=== PATIENT | female | born 1955 | race Caucasian/White ===

== ENCOUNTER → 2019-10-08 13:18 | Outpatient (CLI) | payer MEDICARE, SELFPAY ==
--- NOTE | ~2019-10-08 | US_ITS ---
EXAMINATION: US axilla LT HISTORY: Palpable lump of the left axilla TECHNIQUE: Targeted ultrasound is performed in the left axilla in the area of clinical concern. FINDINGS: There is no evidence of focal abnormal cystic or solid mass in the vicinity of the palpable abnormality of concern. IMPRESSION: No specific sonographic correlate is identified for the reported palpable abnormality of concern in t he left axilla. Further evaluation at this time should be based on clinical assessment. Continued fol low-up physical examination is recommended. BI-RADS Category 1: Negative Reviewed, dictated and finalized at location A. IDER SERVICE REPRESENTATIVE IMPRESSION: No specific sonographic correlate is identified for the reported palpable abnor mality of concern in the left axilla. Further evaluation at this time should be based on clinical assessment. Continued follow-up physical examination is blair mmended. BI-RADS Category 1: Negative
== END ==
PROVIDERS: PCP Internal Medicine; Visit Provider Nurse Practitioner
DX: M79.622 Pain in left upper arm (principal)
CPT/HCPCS: 76882

== ENCOUNTER → 2019-11-02 11:17 | Outpatient (CLI) | payer MEDICARE, SELFPAY ==
--- NOTE | ~2019-11-02 | XR_ITS ---
EXAMINATION: XR shoulder LT min 2V DATE: 11/02/2019 11:32 INDICATION: Left shoulder pain. TECHNIQUE: 4 views of left shoulder were obtained. COMPARISON: None. FINDINGS: Bone alignment is normal. No fracture. There is mild osteoarthritis of glenohumeral joint a nd acromioclavicular joint. IMPRESSION: 1. Mild polyarticular osteoarthritis. Reviewed, dictated and finalized at location A. BER
== END ==
PROVIDERS: Visit Provider Nurse Practitioner Adult Health
DX: M19.012 Primary osteoarthritis, left shoulder (principal)
CPT/HCPCS: 73030

== ENCOUNTER 2020-01-27 18:34 | Outpatient (CLI) | payer MEDICARE, SELFPAY ==
--- NOTE | ~2020-01-27 | MR_ITS ---
EXAMINATION: MR knee RT wo con DATE: 01/27/2020 19:18 INDICATION: Primary osteoarthritis of the right knee TECHNIQUE: Magnetic resonance imaging (MRI) of the right knee was performed without intravenous contr ast. Sequences included coronal PD-weighted FSE, coronal PD-weighted FS FSE, sagittal T2-weighted FS E, sagittal PD-weighted FS FSE and axial PD weighted fat saturated FSE. COMPARISON: None. FINDINGS: Medial compartment: Complex tear of the body and posterior horn of the medial meniscus. The posterior horn appears small with suggestion of a laterally displaced meniscal flap positioned near the posterior root. There is m ild partial-thickness cartilage loss throughout the weightbearing medial femoral condyle and along th e central, medial and posterior aspects of the medial tibial plateau with only minimal scattered bria dral surface irregularity. Lateral compartment: Lateral meniscus is normal. Region of partial-thickness chondral fissuring involving up to 50% the ca rtilage thickness at the central aspect of the lateral tibial plateau. There is deep cartilage loss w ith underlying subarticular edema along the articular surface of the lateral intercondylar eminence. Cartilage along the weightbearing lateral femoral condyle appears relatively preserved. Patellofemoral compartment: Small region of chondral ulceration and deep fissuring involving greater than 50% the cartilage thick ness along the inferior margin of the medial trochlea. Partial thickness cartilage loss with chondral surface irregularity at the medial and lateral patellar facets. Partial-thickness cartilage loss wit h relatively smooth chondral surface at the lateral trochlea. Ligaments and tendons: Tear of the proximal anterior cruciate ligament which appears attenuated with increased intrasubstanc e signal and with a posteriorly bowed course of the ligament which is shallower than Blumensaat line. The resulting mild anterior tibia subluxation results in increased angulation of the otherwise normal posterior cruciate ligament. The medial collateral ligament and fibular collateral ligament complex are normal. Small patellar enthesophytes and mild tendinopathy of the distal quadriceps tendon. Ace lar tendon is normal. The visualized medial and lateral hamstring tendons as well as the iliotibial b and are normal. Fluid: Physiologic amount of fluid in the joint space. No loose osteochondral bodies identified. Osseous/other: No fracture or pathologic marrow replacing process. IMPRESSION: 1. Anterior cruciate ligament tear. 2. Complex tear of the medial meniscus. 3. Mild tricompartmental osteoarthritis. Reviewed, dictated and finalized at location D.
== END 2020-01-27 18:35 | disposition home or self-care (01) ==
LOC: ANHIMG 18:41
PROVIDERS: PCP Internal Medicine; Visit Provider Nurse Practitioner Adult Health
DX: M17.11 Unilateral primary osteoarthritis, right knee (principal); S83.511A Sprain of anterior cruciate ligament of right knee, initial encounter; S83.241A Other tear of medial meniscus, current injury, right knee, initial encounter
CPT/HCPCS: 73721

== ENCOUNTER 2020-09-28 09:27 | Outpatient (CLI) | payer MEDICARE, SELFPAY ==
--- NOTE | ~2020-09-28 | US_ITS ---
EXAMINATION: US soft tissue head and neck DATE: 09/28/2020 10:00 INDICATION: Right chest lump. TECHNIQUE: Multiple grayscale and Doppler ultrasound images of the right supraclavicular and infracla vicular region were obtained. COMPARISON: Chest CT 12/06/2016, chest 2 views 08/02/2019 FINDINGS: There is a 4 mm mixed solid and cystic subcutaneous mass inferior to the right clavicle in the patient's area of concern. There is a fixation plate of the right clavicle. IMPRESSION: 1. 4 mm subcutaneous mass inferior to the right clavicle in the patient's area of concern, most likel y a benign finding such as a sebaceous cyst or hematoma. Reviewed, dictated and finalized at location A. OR MECHANICAL DESIGNER IMPRESSION: 1. 4 mm subcutaneous mass inferior to the right clavicle in the patient's area of concern, most likely a benign finding such as a sebaceous cyst or hematoma.
== END 2020-09-28 09:28 | disposition home or self-care (01) ==
PROVIDERS: PCP Internal Medicine; Visit Provider Nurse Practitioner
DX: R22.2 Localized swelling, mass and lump, trunk (principal)
CPT/HCPCS: 76536

== ENCOUNTER 2020-10-16 08:30 | Outpatient (CLI) | payer MEDICARE, SELFPAY ==
--- NOTE | 2020-10-16 08:39 | ECHO_ITS ---
Patient Info Name: Millicent Yin Age: 64 years : 1955 Gender: Female Ht: 62 in Wt: 160 lbs BSA: 1.81 m2 HR: 77 bpm BP: 150 / 83 mmHg Heart Rhythm: Sinus Rhythm Technical Quality: Good Exam Date: 10/16/2020 8:49 AM Exam Location: [facility] Patient Status: Outpatient Admit Date: 10/16/2020 Staff Ordering Physician: Judith Gonzalez NP Reinforced Concrete Inspector: Dyan Dubose RDCS Attending Provider: Judith Gonzalez NP Referring Physician: Carlos SOLIS; Exam Type: CA echo doppler color flow Study Info Indications - sob Complete two-dimensional, color flow and Doppler transthoracic echocardiogram is performed. Summary 1. Complete two-dimensional, color flow and Doppler transthoracic echocardiogram is performed. 2. Left ventricular chamber dimension is normal. 3. Left ventricular systolic function is normal, estimated at 65-70%. 4. There is no increased left ventricular wall thickness. 5. The left ventricular diastolic function is grade I diastolic dysfunction. 6. Left atrial chamber dimension is mildly enlarged. 7. There is mild mitral valve regurgitation. 8. There is mild tricuspid valve regurgitation. 9. There is mild pulmonic regurgitation. 10. Advanced cardiac imaging such as a cardiac MRI or cardiac CT scan is recommended for evaluation pericardium/pericardial space. 11. The pericardium appears increased echogenicity of the pericardium. Left Ventricle Left ventricular chamber dimension is normal. Left ventricular systolic function is normal, estimated at 65-70%. There is no increased left ventricular wall thickness. The left ventricular diastolic function is grade I diastolic dysfunction. Right Ventricle Right ventricular chamber dimension is normal. Right ventricular systolic function is normal. Left Atria Left atrial chamber dimension is mildly enlarged. Right Atria Right atrial chamber dimension is normal. Atrial Septum Intact interatrial septum visualized by color flow imaging. Aortic Valve The aortic valve is trileaflet. There is mild aortic valve sclerosis. There is no aortic valve stenosis. There is trace aortic valve regurgitation. Pulmonic Valve The pulmonic valve is normal. There is no pulmonic valve stenosis. There is mild pulmonic regurgitation. Mitral Valve The mitral valve has normal leaflets. There is no mitral valve stenosis. There is mild mitral valve regurgitation. Tricuspid Valve The tricuspid valve leaflets are normal. There is no significant tricuspid valve stenosis. There is mild tricuspid valve regurgitation. No pulmonary hypertension, estimated pulmonary arterial systolic pressure is 25 mmHg. Pericardium/Pleural Advanced cardiac imaging such as a cardiac MRI or cardiac CT scan is recommended for evaluation pericardium/pericardial space. The pericardium appears increased echogenicity of the pericardium. There is trivial pericardial effusion. Inferior Vena Cava Dilated inferior vena cava with >50% collapse upon inspiration consistent with elevated right atrial pressure, 10 mmHg. Aorta The aortic root size at the sinus of Valsalva is normal. The prox ascending aorta size is normal. Left Ventricular Outflow Tract Name Value Normal LVOT 2D
== END 2020-10-16 08:31 | disposition home or self-care (01) ==
PROVIDERS: PCP Internal Medicine; Visit Provider Nurse Practitioner
DX: R06.02 Shortness of breath (principal); I08.1 Rheumatic disorders of both mitral and tricuspid valves
CPT/HCPCS: 93306

== ENCOUNTER 2020-11-20 09:49 | Outpatient (CLI) | payer MEDICARE, SELFPAY ==
--- NOTE | ~2020-11-20 | DEXA_ITS ---
Bone Density Report Name: Millicent Yin Age: 65 Sex: Female Ethnicity: White Date of : 1955 Indication: postmenopausal; height loss; prior fracture; Referring Provider: Judith Gonzalez Study: Bone densitometry was performed. Exam Date: November 20, 2020 Accession number: [id number] Bone Density: Region BMD T-score Z-score Classification AP Spine (L1-L4) 1.272 2.0 3.9 Normal Femoral Neck (Left) 0.940 0.8 2.4 Normal Total Hip (Left) 1.105 1.3 2.6 Normal Total Hip Bilateral Avg 1.102 1.3 2.6 Normal Femoral Neck (Right) 0.951 0.9 2.5 Normal Total Hip (Right) 1.098 1.3 2.6 Normal World Health Organization criteria for BMD impression classify patients as: Normal (T-score at or above -1.0), Osteopenia (T-score between -1.0 and -2.5), or Osteoporosis (T-score at or below -2.5). 10-year Fracture Risk: FRAX not reported because: All T-scores for Spine Total, Hip Total, Femoral Neck at or above -1.0 Clinical Information Provided by Patient: Has had a low trauma fracture Has used the following medications: Calcium Patient maximum height was 64 Menopause Age: 57 No regular weight bearing exercise Onset of menses at age 12 Number of children 0 Impression: The patient has normal bone mass. The patient has risk factors, including: previous fracture. Discussion: LOW RISK OF FRACTURE; BONE DENSITY IS WELL ABOVE THE MINIMUM DESIRABLE LEVEL AND ABOVE AVERAGE FOR AGE AND SEX AT ALL SKELETAL SITES TESTED. This person's bone density is above expected limits for age and sex. This is rarely clinically significant, but should be pursued if there are significant musculoskeletal complaints. The patient should follow a healthful lifestyle (good nutrition with adequate calcium and vitamin D, and appropriate weight-bearing exercise). Follow-Up: Consider repeating this study in 5 years or sooner if there is some new clinical indication. Reported by: [facility] on 11/20/2020 10:03:00 AM. Reviewed, dictated and finalized at location AMarilia SOSA
== END 2020-11-20 09:50 | disposition home or self-care (01) ==
LOC: ANHIMG 09:51
PROVIDERS: PCP Internal Medicine; Visit Provider Nurse Practitioner
DX: Z13.820 Encounter for screening for osteoporosis (principal); M81.0 Age-related osteoporosis without current pathological fracture
CPT/HCPCS: 77080

== ENCOUNTER 2021-01-08 10:04 | Outpatient (CLI) | payer MEDICARE, SELFPAY ==
--- NOTE | ~2021-01-08 | MM_ITS ---
EXAMINATION: MM screening [facility] BI w john HISTORY: Screening mammogram TECHNIQUE: Craniocaudal and mediolateral oblique 3-D tomosynthesis images were obtained and synthetic 2-D images were generated. CAD analysis was submitted and interpreted. COMPARISON: 08/10/2019, 05/21/2018, 02/26/2016 BREAST PARENCHYMAL COMPOSITION: There are scattered areas of fibroglandular density. FINDINGS: There is no evidence of suspicious mass, calcification, or architectural distortion to sugg est malignancy in either breast. There has been no suspicious interval change. IMPRESSION: 1. No mammographic evidence of malignancy. 2. Recommend routine screening mammography in one year. BI-RADS Category 1: Negative Reviewed, dictated and finalized at location A.
== END 2021-01-08 10:05 | disposition home or self-care (01) ==
LOC: ANHIMG 10:07
PROVIDERS: PCP Internal Medicine; Visit Provider Nurse Practitioner
DX: Z12.31 Encounter for screening mammogram for malignant neoplasm of breast (principal)
CPT/HCPCS: 77063; 77067

== ENCOUNTER 2023-01-13 11:06 | Outpatient (CLI) | payer MEDICARE, OTHER, SELFPAY ==
[2023-01-13 19:43] LABS: Basophils Absolute Auto 0.1 K/mm3 (0.0-0.1); Basophils Percent Auto 0.7 % (0.2-1.2); Eosinophils Absolute Auto 0.2 K/mm3 (0-0.3); Eosinophils Percent Auto 2.4 % (0-4.4); Hematocrit 40.5 % (37.0-47.0); Hemoglobin 13.6 g/dL (12.0-15.0); Immature Granulocyte Absolute 0.02 K/mm3 (0.00-0.031); Immature Granulocyte Percent A 0.3 % (0-0.5); Lymphocytes Absolute Auto 1.78 K/mm3 (0.9-3.2); Lymphocytes Percent Auto 26.5 % (18.3-44.2); Mean Corpuscular HGB Conc 33.6 g/dl (32-36); Mean Corpuscular Hemoglobin 30.8 pg (26-34); Mean Corpuscular Volume 91.8 fl (80-100); Mean Platelet Volume 10.4 fl (7.4-10.4); Monocytes Absolute Auto 0.6 K/mm3 (0.1-0.6); Monocytes Percent Auto 8.5 % (2.6-8.5); Neutrophils Absolute Auto 4.1 K/mm3 (1.3-6.7); Neutrophils Percent Auto 61.6 % (45.5-73.1); Platelet Count Result 299 k/mm3 (150-375); Red Blood Count 4.41 M/mm3 (4.2-5.4); Red Cell Distribution Width 12.9 % (11.5-14.5); White Blood Count 6.7 K/mm3 (4.5-10.0)
[2023-01-13 20:51] LABS: Vitamin D 25 Hydroxy 64.1 ng/mL
[2023-01-13 22:17] LABS: Alanine Aminotransferase 20 U/L (6-35); Albumin Level 4.1 g/dL (3.5-5.1); Alkaline Phosphatase 77 U/L (38-126); Anion Gap 2 mmol/L (8-16); Aspartate Amino Transferase 28 U/L (14-36); Bilirubin,Total 0.6 mg/dL (0.2-1.3); Blood Urea Nitrogen 13 mg/dL (7-17); Calcium 9.5 mg/dL (8.4-10.2); Carbon Dioxide 35 mmol/L (22-30); Chloride 103 mmol/L (98-107); Cholesterol 191 mg/dL (0-200); Estimated Glomerular Filt Rate 55; Glucose 91 mg/dL (65-110); HDL Direct 54 mg/dL; Potassium 4.5 mmol/L (3.4-5.0); Sodium 140 mmol/L (137-145); Triglycerides 90 mg/dL (<150)
[2023-01-13 23:18] LABS: LDL Cholesterol Direct 105 mg/dL
== END 2023-01-13 11:07 | disposition home or self-care (01) ==
LOC: ANHGOSHLAB 11:08
PROVIDERS: PCP Internal Medicine; Visit Provider Nurse Practitioner
DX: E03.9 Hypothyroidism, unspecified (principal); E55.9 Vitamin D deficiency, unspecified; Z13.29 Encounter for screening for other suspected endocrine disorder; Z13.220 Encounter for screening for lipoid disorders
CPT/HCPCS: 36415; 80053; 80061; 82306; 84443; 85025

== ENCOUNTER → 2023-01-13 11:32 | Outpatient (CLI) | payer MEDICARE, OTHER, SELFPAY ==
--- NOTE | ~2023-01-13 | XR_ITS ---
XR knee LT 3V 01/13/2023 11:58 INDICATION: Left knee pain PROCEDURE: 3 views left knee COMPARISON: No prior studies for comparison. FINDINGS: Fracture, dislocation or subluxation is not identified. No significant joint effusion. The soft tissues appear within normal limits. No foreign bodies are identified. IMPRESSION: 1: NO ACUTE BONE OR JOINT ABNORMALITY IDENTIFIED. Reviewed, dictated and finalized at location B.
== END ==
PROVIDERS: PCP Nurse Practitioner; Visit Provider Nurse Practitioner
DX: M25.562 Pain in left knee (principal)
CPT/HCPCS: 73562

== ENCOUNTER → 2023-04-08 10:19 | Outpatient (CLI) | payer MEDICARE, OTHER, SELFPAY ==
--- NOTE | ~2023-04-08 | MM_ITS ---
EXAMINATION: MM screening [facility] BI w john HISTORY: Screening mammogram TECHNIQUE: Craniocaudal and mediolateral oblique 3-D tomosynthesis images were obtained and synthetic 2-D images were generated. CAD analysis was submitted and interpreted. COMPARISON: 01/08/2021, 08/10/2019, 05/21/2018 BREAST PARENCHYMAL COMPOSITION: There are scattered areas of fibroglandular density. FINDINGS: No suspicious mass, calcification, or architectural distortion are identified in either elzbieta ast to suggest malignancy. There has been no suspicious interval change. IMPRESSION: 1. No mammographic evidence of malignancy. 2. Recommend routine screening mammography in one year. BI-RADS Category 1: Negative Reviewed, dictated and finalized at location A.
== END ==
PROVIDERS: PCP Nurse Practitioner; Visit Provider Nurse Practitioner
DX: Z12.31 Encounter for screening mammogram for malignant neoplasm of breast (principal)
CPT/HCPCS: 77063; 77067

== ENCOUNTER 2023-08-26 14:46 | Emergency (ER) | payer MEDICARE, OTHER, SELFPAY ==
[2023-08-26 14:55] VITALS: BP 131/71; PULSE 100; RESP 16; TEMP 36.9; O2SAT 96
--- NOTE | 2023-08-26 15:01 | ED.URI ---
HPI - URI/Sore Throat General Chief Complaint: Upper Respiratory Infection Stated Complaint: Fever, Covid Time Seen by Provider: 08/26/23 14:48 Source: patient Mode of arrival: ambulatory Limitations: no limitations History of Present Illness HPI Narrative: Millicent is a 59-year-old female patient presenting to clinic today with complaints fever, cough. She reports that she tested positive for COVID today. Has had symptoms for 2 days. Denies any chest pain or shortness of breath. Contacted her primary care's office and they suggested she come in to be evaluated for medication MD elicited complaint: sore throat and nasal congestion Related Data Home Medications Medication Instructions Recorded Confirmed cholecalciferol (vitamin D3) 25 5,000 unit PO DAILY 06/12/21 01/13/23 mcg (1,000 unit) capsule Allergies Allergy/AdvReac Type Severity Reaction Status Date / Time No Known Drug Allergies Allergy Unknown none Uncoded 01/13/23 10:26 Review of Systems Review of Systems: Pertinent positives per HPI. Patient denies any fever, chills, rash, headache, visual changes, dizziness, shortness of breath, chest pain, palpitations, nausea, vomiting, diarrhea, constipation, abdominal pain, or any urinary issues. [facility] Past Medical History Medical History Allergies Broken clavicle April 2017 Repaired August 2017 Broken rib 10 broken ribs April 2017 Bronchitis Hemorrhoids History of measles, mumps, or rubella Hyperlipidemia Hypertension Hypothyroidism Osteoarthritis Shoulder pain Surgical History Surgical History History of right knee surgery Family History Family History Mother Diabetes mellitus CHF (congestive heart failure) Father Diabetes mellitus Social History Social History Smoking status: Never smoker Alcohol intake: never Substance use: never Lack of Transportation: No Lack of Food: Never True Current Housing: I Have Housing Concerned About Future Housing: No Difficulty Paying Gas/Electric Bills: No Difficulty Paying for Meds: No Currently Unemployed: No Education: High School Diploma/GED Difficulty w/ Childcare or Family Care: No Comments At the time of my signature, I reviewed and agree with the nursing past medical, surgical, social, and family history. There is no relevant family history pertinent to the patient complaint. Exam Narrative: General: Well-developed, well nourished, in no apparent distress Head: Normocephalic, atraumatic Eyes: Pupils equally round and reactive to light bilaterally, EOM intact, sclera and conjunctive clear, no discharge, lids normal Ears: TMs intact and clear, ear canals clear, no drainage, grossly hearing normal. Nose: Nares patent, clear nasal discharge, no inflammation, no sinus tenderness. Mouth: Oral pharynx without lesions or masses, good dentition, MMM. Neck: Supple, trachea midline, no enlargement of anterior or posterior cervical nodes, no thyroid masses or goiter palpable. Cardio: Regular rate and rhythm, s1 and s2 normal, no murmur appreciated. Resp: Clear to auscultation bilaterally, no rhonchi, rales, wheezing or rubs Course Course Emergency Course: Portions of this record may have been created with voice recognition software. Level of Care: Express Care Visit Vital Signs Vital signs: Vital Signs Temperature 36.9 C 08/26/23 14:55 Pulse Rate 100 08/26/23 14:55 Respiratory Rate 16 08/26/23 14:55 Blood Pressure 131/71 08/26/23 14:55 Pulse Oximetry 96 08/26/23 14:55 Temperature 36.9 C 08/26/23 14:55 Pulse Rate 100 08/26/23 14:55 Respiratory Rate 16 08/26/23 14:55 Blood Pressure 131/71 08/26/23 14:55 Pulse Oximetry 96 08/26/23
== END 2023-08-26 15:12 | disposition home or self-care (01) ==
PROVIDERS: Emergency Provider Nurse Practitioner Family; PCP Nurse Practitioner
DX: U07.1 COVID-19 (principal); E78.5 Hyperlipidemia, unspecified; I10 Essential (primary) hypertension; E03.9 Hypothyroidism, unspecified; M19.90 Unspecified osteoarthritis, unspecified site
CPT/HCPCS: 87426; 87804; 99213; C9803; G0463

== ENCOUNTER 2023-12-04 11:17 | Outpatient (CLI) | payer MEDICARE, OTHER, SELFPAY ==
[2023-12-04 13:22] LABS: Basophils Absolute Auto 0.1 K/mm3 (0.0-0.1); Basophils Percent Auto 0.9 % (0.2-1.2); Eosinophils Absolute Auto 0.2 K/mm3 (0-0.3); Eosinophils Percent Auto 3.2 % (0-4.4); Hematocrit 41.8 % (37.0-47.0); Immature Granulocyte Absolute 0.02 K/mm3 (0.00-0.031); Immature Granulocyte Percent A 0.3 % (0-0.5); Lymphocytes Absolute Auto 2.14 K/mm3 (0.9-3.2); Lymphocytes Percent Auto 30.7 % (18.3-44.2); Mean Corpuscular HGB Conc 33.5 g/dl (32-36); Mean Corpuscular Hemoglobin 30.6 pg (26-34); Mean Corpuscular Volume 91.5 fl (80-100); Mean Platelet Volume 10.2 fl (7.4-10.4); Monocytes Absolute Auto 0.6 K/mm3 (0.1-0.6); Monocytes Percent Auto 7.9 % (2.6-8.5); Platelet Count Result 286 k/mm3 (150-375); Red Blood Count 4.57 M/mm3 (4.2-5.4); Red Cell Distribution Width 13.1 % (11.5-14.5)
[2023-12-04 13:48] LABS: Alanine Aminotransferase 19 U/L (6-35); Albumin Level 4.3 g/dL (3.5-5.1); Alkaline Phosphatase 84 U/L (38-126); Anion Gap 4 mmol/L (4-12); Aspartate Amino Transferase 41 U/L (14-36); Bilirubin,Total 0.7 mg/dL (0.2-1.3); Blood Urea Nitrogen 17 mg/dL (7-17); Calcium 10.1 mg/dL (8.4-10.2); Carbon Dioxide 30 mmol/L (22-30); Chloride 105 mmol/L (98-107); Cholesterol 223 mg/dL (0-200); Estimated Glomerular Filt Rate 55; Glucose 103 mg/dL (65-110); HDL Direct 54 mg/dL; Potassium 4.5 mmol/L (3.4-5.0); Sodium 139 mmol/L (137-145); Triglycerides 123 mg/dL (<150)
[2023-12-04 14:11] LABS: Vitamin D 25 Hydroxy 73.6 ng/mL
[2023-12-04 14:37] LABS: LDL Cholesterol Direct 127 mg/dL
== END 2023-12-04 11:18 | disposition home or self-care (01) ==
LOC: ANHGOSHLAB 11:19
PROVIDERS: PCP Nurse Practitioner; Visit Provider Nurse Practitioner
DX: E03.9 Hypothyroidism, unspecified (principal); E55.9 Vitamin D deficiency, unspecified; Z13.220 Encounter for screening for lipoid disorders; Z13.29 Encounter for screening for other suspected endocrine disorder
CPT/HCPCS: 36415; 80053; 80061; 82306; 84443; 85025

== ENCOUNTER 2023-12-04 11:28 | Outpatient (CLI) | payer MEDICARE, OTHER, SELFPAY ==
--- NOTE | ~2023-12-04 | XR_ITS ---
XR clavicle RT DATE: 12/04/2023 11:44 INDICATION: Fracture TECHNIQUE: AP and angled AP views of right clavicle COMPARISON: None FINDINGS: There are 2 plates and screws along the clavicular shaft with virtually anatomic position a nd alignment of the clavicle. Normal sternoclavicular, acromioclavicular and glenohumeral alignment. IMPRESSION: Plates and screws along right clavicular shaft Reviewed, dictated and finalized at location B.
== END 2023-12-04 11:29 ==
PROVIDERS: PCP Internal Medicine; Visit Provider Nurse Practitioner
DX: S42.009A Fracture of unspecified part of unspecified clavicle, initial encounter for closed fracture (principal); X58.XXXA Exposure to other specified factors, initial encounter
CPT/HCPCS: 73000

== ENCOUNTER 2024-08-16 11:19 | Emergency (ER) | payer MEDICARE, OTHER, SELFPAY ==
--- NOTE | ~2024-08-16 | XR_ITS ---
EXAMINATION: XR ankle RT min 3V DATE: 08/16/2024 12:44 INDICATION: Right ankle pain and swelling post fall TECHNIQUE: Anteroposterior, oblique, mortise, and lateral views of the right ankle were obtained. COMPARISON: None. FINDINGS: There is an oblique fracture through the distal fibula with a fracture plane exiting medially at the level of the tibiotalar joint. There is one cortical width lateral displacement. No other fracture i dentified. Specifically the medial and posterior malleoli as well as the talar dome are intact. Ank le mortise remains congruent. 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 Moderate-sized plantar calcaneal spur and tiny enthesopathic ossicle at the distal Achilles tendon. Soft tissue swelling overlying the lateral malleolus and anterior to the ankle. Lik aram small ankle joint effusion. IMPRESSION: 1. Minimally displaced oblique fracture of the distal left fibula consistent with a Ambriz type B inju ry pattern. Reviewed, dictated and finalized at location A. STRIAL MAINTENANCE MANAGER IMPRESSION: 1. Minimally displaced oblique fracture of the distal left fibula consistent wi th a Ambriz type B injury pattern.
[2024-08-16 11:54] VITALS: BP 142/68; PULSE 86; RESP 16; TEMP 36.2; O2SAT 100
--- NOTE | 2024-08-16 12:20 | ED_ITS ---
HPI - Extremity Injury (Lower) General Chief Complaint: Extremity Injury, Lower Stated Complaint: Injured Ankle Pain Time Seen by Provider: 08/16/24 12:20 Source: patient Mode of arrival: ambulatory Limitations: no limitations History of Present Illness HPI Narrative: 68 yo F presents with pain and swelling to R ankle. Was coming down from camper steps and L ankle came out from under her on last step causing her to fall and land on top of her R ankle. Pt was unable to bear weight after injury. Called her , who was inside the house, to bring her crutches that they had at home from previous injury. Pt arrived to with crutches. ROM decreased due to pain, distal NV intact. All systems reviewed and negative except as noted above. Related Data Home Medications ?Medication ?Instructions ?Recorded ?Confirmed ?Last Taken ?Type cholecalciferol (vitamin D3) 25 5,000 unit PO DAILY 06/12/21 08/16/24 Unknown History mcg (1,000 unit) capsule loratadine 10 mg tablet (Allergy 10 mg PO DAILY 12/04/23 08/16/24 Unknown History Relief (loratadine)) Allergies Allergy/AdvReac Type Severity Reaction Status Date / Time No Known Drug Allergies Allergy Unknown none Uncoded 08/16/24 12:03 Review of Systems Review of Systems: CONSTITUTIONAL: Denies fever, chills, or sweats. EYES: Denies visual changes, redness, or discharge. ENT: Denies rhinorrhea, congestion, sore throat, or otalgia. CARDIOVASCULAR: Denies chest pain, palpitations, or edema. RESPIRATORY: Denies cough or dyspnea. GASTROINTESTINAL: Denies abdominal pain, nausea, vomiting, or diarrhea. GENITOURINARY: Denies dysuria or hematuria. SKIN: Denies rash or itching. MUSCULOSKELETAL: Reports pain and swelling to right ankle. NEUROLOGIC: Denies headache, numbness, or weakness. PSYCHIATRIC: Denies anxiety or depression. All other systems reviewed are negative, except as documented in HPI. [facility] Past Medical History Medical History (Updated 08/16/24 @ 13:19 by Awilda Ramos NP) Broken rib 10 broken ribs April 2017 Broken clavicle April 2017 Repaired August 2017 History of measles, mumps, or rubella Hemorrhoids Hypertension Osteoarthritis Hypothyroidism Hyperlipidemia Shoulder pain Bronchitis Allergies Surgical History Surgical History History of right knee surgery Family History Family History Mother Diabetes mellitus CHF (congestive heart failure) Father Diabetes mellitus Social History Social History Smoking status: Never smoker Alcohol intake: never Substance use: never Lack of Transportation: No Lack of Food: Never True Current Housing: I Have Housing Concerned About Future Housing: No Difficulty Paying Gas/Electric Bills: No Difficulty Paying for Meds: No Currently Unemployed: No Education: High School Diploma/GED Difficulty w/ Childcare or Family Care: No Comments At time of signature, agree with nursing past medical, surgical, social and family history. There is no relevant family history pertinent to the presenting complaint. Exam Narrative: GENERAL: This is a well-nourished, well-developed patient, in no apparent distress. HEAD: normocephalic, atraumatic. EYES: PERRL. Sclera clear/white. Vision is grossly intact. EARS: External ears normal NOSE: External nose normal NECK: Neck supple, non-tender without lymphadenopathy, masses or thyromegaly. CARDIOVASCULAR: Regular rate and rhythm without murmurs, gallops, or rubs. RESPIRATORY: Clear to auscultation. Breath sounds equal bilaterally. No wheezes, rales, or rhonchi. SKIN: warm, Dry, intact with no suspicious lesions or rash, good texture and turgor. NEURO: awake, alert, and oriented to person, place and time. There were no obvious focal neurologic abnormalities. EXTREMITIES: tenderness to anterior and lateral aspect of R ankle. significant swelling lateral aspect. R DP pulse 2+. decreased ROM due to pain. Course Course Level of Care: Express Care Visit Vital Signs Vital signs: Vital Signs Temperature 36.2 C L 08/16/24 11:54 Pulse Rate 86 08/16/24 11:54 Respiratory Rate 16 08/16/24 11:54 Blood Pressure 142/68 H 08/16/24 11:54 Pulse Oximetry 100 08/16/24 11:54 Oxygen Delivery Room Air 08/16/24 11:54 Temperature 36.2 C L 08/16/24 11:54 Pulse Rate 86 08/16/24 11:54 Respiratory Rate 16 08/16/24 11:54 Blood Pressure 142/68 H 08/16/24 11:54 Pulse Oximetry 100 08/16/24 11:54 Oxygen Delivery Room Air 08/16/24 11:54 Reviewed MDM - Extremity Injury (Lower) MDM Narrative Medical decision making narrative: discussed x-ray with pt. OCL placed by isabell Abbott. distal NV intact pre and posting procecure. Referred to Dr. Cervantes for follow up . Patient is aware of diagnosis, understands and agrees to treatment plan. Anticipatory guidance given. Patient agrees to follow-up as directed and is aware of reasons to seek care at the emergency department. Portions of this record may have been created with voice recognition software Differential Diagnosis Differential diagnosis: Likely ankle sprain and strain and ankle fracture Imaging Data My impression: Agree with radiologist Radiologist's impression: EXAMINATION: XR ankle RT min 3V DATE: 08/16/2024 12:44 INDICATION: Right ankle pain and swelling post fall TECHNIQUE: Anteroposterior, oblique, mortise, and lateral views of the right ankle were obtained. COMPARISON: None. FINDINGS: There is an oblique fracture through the distal fibula with a fracture plane exiting medially at the level of the tibiotalar joint. There is one cortical width lateral displacement. No other fracture identified. Specifically the medial and posterior malleoli as well as the talar dome are intact. Ankle mortise remains congruent. Hallux valgus with bunion and mild osteoarthritis at the first metatarsophalangeal joint. Moderate-sized plantar calcaneal spur and tiny enthesopathic ossicle at the distal Achilles tendon. Soft tissue swelling overlying the lateral malleolus and anterior to the ankle. Likely small ankle joint effusion. IMPRESSION: 1. Minimally displaced oblique fracture of the distal left fibula consistent with a Ambriz type B injury pattern. Discharge Plan Discharge Clinical Impression: Closed right fibular fracture Patient Disposition: Home, Self-Care Condition: Stable Instructions: Ankle Fracture (ED) Additional Instructions: The x-ray of your right ankle shows a fracture to your fibula bone. Take ibuprofen or tylenol every 6 to 8 hours as needed for pain. Take prescription pain medication only if pain is severe. Elevate when at rest. Call and schedule follow up appointment with orthopedics. Patient Language: Luxembourgish Prescriptions: New hydrocodone-acetaminophen 5-325 mg tablet 1 tablet PO Q6H PRN (Reason: pain) Qty: 12 0RF No Action loratadine [Allergy Relief (loratadine)] 10 mg tablet 10 mg PO DAILY cholecalciferol (vitamin D3) 25 mcg (1,000 unit) capsule 5,000 unit PO DAILY levothyroxine 75 mcg tablet 75 mcg PO DAILY Qty: 90 3RF Follow-up/Referrals: Sarbjit Cervantes MD [Physician] - (call and schedule follow up appointment with clinical operations specialist) Robin Diez DO [Primary Care Provider] - Time of Disposition: 13:19
== END 2024-08-16 13:34 | disposition home or self-care (01) ==
PROVIDERS: Emergency Provider Nurse Practitioner Family; PCP Internal Medicine
DX: S82.831A Other fracture of upper and lower end of right fibula, initial encounter for closed fracture (principal); I10 Essential (primary) hypertension; E03.9 Hypothyroidism, unspecified; E78.5 Hyperlipidemia, unspecified; M19.90 Unspecified osteoarthritis, unspecified site
CPT/HCPCS: 29515; 73610; 99214; G0463

== ENCOUNTER 2024-12-09 11:29 | Outpatient (CLI) | payer MEDICARE, OTHER, SELFPAY ==
--- OUTSIDE RECORDS SUMMARY | 2024-12-09 12:18 | XMS_ITS | Clinical Summary ---
Author Organization [facility] Address [address] [place] [address] Care Team Providers Care Wet Pour Mixer Name Role Phone Robin Diez DO Primary Care Provider [phone] Allergies No known active allergies Medications levothyroxine (SYNTHROID) 75 MCG tablet Take 1 tablet (75 mcg total) by mouth every morning. 06/16/2023 Active Vitamin D3 125 mcg Tab Take 1 tablet (125 mcg total) by mouth daily. Active cetirizine (ZYRTEC) 10 MG tablet Take 1 tablet (10 mg total) by mouth daily. Active Social History Tobacco Use Types Packs/Day Years Used Date Smoking Tobacco: Never Smokeless Tobacco: Never Tobacco Cessation:Counseling Given: Not Answered Alcohol Use Standard Drinks/Week Comments Not Currently 0 (1 standard drink = 0.6 oz pur e alcohol) Comments No Sex and Gender Information Value Date Recorded Sex Assigned at Not on file Legal Sex Female 5:44 PM CDT Gender Identity Not on file Sexual Orientation Not on file Last Filed Vital Signs Vital Sign Reading Time Taken Comments Blood Pressure 134/56 06/19/2023 3:28 PM CDT Pulse 77 06/19/2023 3:28 PM CDT Temperature 36.6 C (97.8 F) 06/19/2023 3:28 PM CDT Respiratory Rate 16 06/19/2023 3:28 PM CDT Oxygen Saturation 99% 06/19/2023 3:28 PM CDT Inhaled Oxygen Concentration - - Weight 72.6 kg (160 lb) 06/19/2023 3:28 PM CDT Height 158.8 cm (5' 2.5 ) 06/19/2023 3:28 PM CDT Body Mass Index 28.8 06/19/2023 3:28 PM CDT Plan of Treatment Health Maintenance Due Date Last Done Comments Colorectal Cancer Screening Colonoscopy (10 Years) 1954 Hepatitis C 1972 DTaP, Tdap and Td Vaccines ( 1 - Tdap) 1973 Mammogram Screening 1994 Zoster Vaccines (1 of 2) 2004 Annual Medicare Wellness Visit 2019 Dexa Scan (General) 2019 Pneumococcal Vaccine: 65+ Years (1 of 1 - PCV) 2019 COVID-19 Vaccine (3 - 2023-2 5 season) 2024 11/14/2020, 10/13/2020 RSV Immunization or 60+ Years (1 - 1-dose 75+ series) 2029 Meningococcal B Vaccine Aged Out No l onger eligible based on patient's age to complete this topic Meningococcal Vaccine Aged Out No jessica татьяна eligible based on patient's age to complete this topic RSV Immunizations Under 20 Months Aged Out No longer eligible b ased on patient's age to complete this topic Insurance MEDICARE [facility] Care Teams Wet Pour Mixer Relationship Specialty Start Date End Date Robin Diez DO [id number] [facility] [address] [place] [address] PCP - General INTERNAL MEDICINE 06/19/23
[2024-12-09 18:58] LABS: Alanine Aminotransferase 19 U/L (6-35); Albumin Level 4.1 g/dL (3.5-5.1); Alkaline Phosphatase 90 U/L (38-126); Anion Gap 7 mmol/L (4-12); Aspartate Amino Transferase 29 U/L (14-36); Bilirubin,Total 0.7 mg/dL (0.2-1.3); Blood Urea Nitrogen 13 mg/dL (7-17); Calcium 9.3 mg/dL (8.4-10.2); Carbon Dioxide 31 mmol/L (22-30); Chloride 102 mmol/L (98-107); Cholesterol 197 mg/dL (0-200); Estimated Glomerular Filt Rate 54; Glucose 95 mg/dL (65-110); HDL Direct 55 mg/dL; Potassium 4.4 mmol/L (3.4-5.0); Sodium 140 mmol/L (137-145); Triglycerides 124 mg/dL (<150)
[2024-12-09 18:59] LABS: Basophils Absolute Auto 0.1 K/mm3 (0.0-0.1); Basophils Percent Auto 0.7 % (0.2-1.2); Eosinophils Absolute Auto 0.3 K/mm3 (0-0.3); Hematocrit 40.9 % (37.0-47.0); Hemoglobin 13.6 g/dL (12.0-15.0); Immature Granulocyte Absolute 0.02 K/mm3 (0.00-0.031); Immature Granulocyte Percent A 0.3 % (0-0.5); Lymphocytes Absolute Auto 2.13 K/mm3 (0.9-3.2); Lymphocytes Percent Auto 29.4 % (18.3-44.2); Mean Corpuscular HGB Conc 33.3 g/dl (32-36); Mean Corpuscular Hemoglobin 30.2 pg (26-34); Mean Corpuscular Volume 90.9 fl (80-100); Mean Platelet Volume 10.5 fl (7.4-10.4); Monocytes Absolute Auto 0.7 K/mm3 (0.1-0.6); Monocytes Percent Auto 9.7 % (2.6-8.5); Neutrophils Absolute Auto 4.1 K/mm3 (1.3-6.7); Neutrophils Percent Auto 55.9 % (45.5-73.1); Platelet Count Result 267 k/mm3 (150-375); Red Cell Distribution Width 12.9 % (11.5-14.5); White Blood Count 7.2 K/mm3 (4.5-10.0)
[2024-12-09 19:09] LABS: LDL Cholesterol Direct 114 mg/dL
== END 2024-12-09 11:30 | disposition home or self-care (01) ==
PROVIDERS: PCP Nurse Practitioner; Visit Provider Nurse Practitioner
DX: E03.9 Hypothyroidism, unspecified (principal); E55.9 Vitamin D deficiency, unspecified; Z13.220 Encounter for screening for lipoid disorders; Z13.29 Encounter for screening for other suspected endocrine disorder
CPT/HCPCS: 36415; 80053; 80061; 84443; 85025